=== PATIENT | male | born 1950 | race Caucasian/White ===

== ENCOUNTER 2019-07-23 23:50 | Inpatient (IN) | payer OTHER ==
[~2019-07-23] VITALS: Ht 167.6 cm; Wt 128.8 kg
[2019-07-23 23:55] VITALS: BP_SYST 129
[2019-07-24] MEDS ORDERED: ONDANSETRON HCL 4 MG/2 ML VIAL IVP ONE (00:30)
[2019-07-24] MEDS ORDERED: fentaNYL CITRATE/PF 100 MCG/2 ML AMP IVP ONE ×2 (00:30→02:30)
[2019-07-24] MEDS ORDERED: ROSU10TA2 PO (00:44)
[2019-07-24] MEDS ORDERED: GABA-533 PO (00:44)
[2019-07-24] MEDS ORDERED: LEVO112T5 PO (00:44)
[2019-07-24 00:50] LABS: HEMATOCRIT 38.2 % (36-54); HEMOGLOBIN 13.3 g/dL (14.0-18.0); MEAN CORPUSCULAR HEMOGLOBIN 31 pg (27-31); MEAN CORPUSCULAR HGB CONC 35 % (32-36); MEAN CORPUSCULAR VOLUME 90 fL (79.0-98.0); PLATELET COUNT (AUTO) 90 K/uL (130-430); RED BLOOD CELL COUNT(AUTO) 4.27 MIL/uL (4.2-6.2); RED CELL DISTRIBUTION WIDTH 14.7 % (9.0-15.0); WHITE BLOOD COUNT (AUTO) 3.5 K/uL (4.8-10.8)
[2019-07-24 01:02] LABS: CALCIUM 8.2 mg/dL (8.4-11.0); CREATININE 0.89 mg/dL (0.55-1.30); POTASSIUM 4.1 mmol/L (3.5-5.1)
[2019-07-24 01:02] LABS: BILIRUBIN,URINE NEGATIVE (NEGATIVE); BLOOD, URINE 1+ (NEGATIVE); CLARITY/URINE CLEAR (CLEAR); COLOR,URINE YELLOW (YELLOW); GLUCOSE,URINE 3+ (NEGATIVE); KETONES,URINE 1+ (NEGATIVE); LEUKOCYTE ESTERASE ,URINE NEGATIVE (NEGATIVE); NITRITE, URINE NEGATIVE (NEGATIVE); PH,URINE 5.5 (5.0-8.0); PROTEIN URINE 1+ (NEGATIVE); UROBILINOGEN,URINE 0.2 (0.2-1.0)
[2019-07-24 01:09] LABS: BACTERIA,URINE FEW /HPF (None Seen)
[2019-07-24 01:22] LABS: ATYPICAL LYMPHOCYTES % 0 % (0-0); BAND % (MANUAL) 4 % (0-6); BASOPHILS % (MANUAL) 0 % (0-2); EOSINOPHILS % (MANUAL) 0 % (0-7); LYMPHOCYTES % (MANUAL) 13 % (20-46); METAMYELOCYTES % 0 % (0-0); MONOCYTES % (MANUAL) 5 % (0-11); MYELOCYTES % 2 % (0-0)
[2019-07-24] MEDS ORDERED: NS 500 ML IV ONE (02:00)
[2019-07-24] MEDS ORDERED: IOHEXOL 350 mgI/mL, 150 ML INFUS..BTL IV ONE (02:01)
[2019-07-24] MEDS ORDERED: NACL 0.9% 1,000 ML IV ONE (02:45)
[2019-07-24 03:31] VITALS: BP_SYST 128
[2019-07-24] MEDS: NACL 0.9% 1,000 ML IV SCH ×3 (05:08→23:00)
[2019-07-24 08:10] VITALS: BP_SYST 109
[2019-07-24] MEDS ORDERED: ACETAMINOPHEN 650 MG SUPP.RECT RC PRN (10:45)
[2019-07-24] MEDS ORDERED: traMADol HCL HCL 50 MG TABLET (ULTRAM) PO PRN (10:45)
[2019-07-24 11:34] VITALS: BP_SYST 106
[2019-07-24] MEDS ORDERED: DEXTROSE 50% JECT 50 ML DISP.SYRIN IVP PRN (12:00)
[2019-07-24] MEDS ORDERED: LORazepam 1 MG TABLET PO PRN (12:00)
[2019-07-24] MEDS ORDERED: THIAMINE HCL 100 MG TABLET PO ONE (12:00)
[2019-07-24] MEDS ORDERED: FAMOTIDINE 20 MG TABLET PO ONE (12:00)
[2019-07-24] MEDS ORDERED: LEVOTHYROXINE SODIUM 0.112 MG TABLET PO ONE (12:00)
[2019-07-24] MEDS ORDERED: TEMAZEPAM 15 MG CAPSULE PO PRN (12:00)
[2019-07-24] MEDS ORDERED: PIPERACILLIN/TAZO 3.375/DEX-IS 50 ML IV SCH (12:00)
[2019-07-24] MEDS: GABAPENTIN 400 MG CAPSULE PO SCH ×2 (15:28→21:00)
[2019-07-24 16:00] VITALS: BP_SYST 110
[2019-07-24] MEDS: INSULIN REGULAR, HUMAN 100 UNITS/ML, 10 ML VIAL (humuLIN R) SUBCUT PRN (17:55)
[2019-07-24] MEDS ORDERED: cefTRIAXone 1 GM in D5W 50 ML IV SCH (18:00)
[2019-07-24 20:00] VITALS: BP_SYST 114
[2019-07-24] MEDS: ATORVASTATIN 20 MG TABLET PO SCH (21:00)
[2019-07-24] MEDS: FAMOTIDINE 20 MG TABLET PO SCH (21:00)
[2019-07-24] MEDS ORDERED: ROSUVASTATIN CALCIUM 5 MG/TAB (CRESTOR) PO SCH (21:00)
[2019-07-25] VITALS: BP_SYST 112
[2019-07-25] MEDS: MORPHINE 2 MG/ML INJ. SYRINGE IVP PRN ×2 (06:07→21:13)
[2019-07-25] MEDS: LEVOTHYROXINE SODIUM 0.112 MG TABLET PO SCH (06:09)
[2019-07-25] MEDS: INSULIN REGULAR, HUMAN 100 UNITS/ML, 10 ML VIAL (humuLIN R) SUBCUT PRN ×3 (06:14→16:43)
[2019-07-25 06:39] LABS: ALBUMIN 2.5 g/dL (3.4-4.8); CALCIUM 7.7 mg/dL (8.4-11.0); CREATININE 0.83 mg/dL (0.55-1.30); POTASSIUM 3.8 mmol/L (3.5-5.1); THYROID STIMULATING HORMONE 7.23 uIu/mL (0.36-3.74); TOTAL BILIRUBIN 0.9 mg/dL (0.0-1.0)
[2019-07-25 08:00] VITALS: BP_SYST 124
[2019-07-25 08:03] LABS: HEMATOCRIT 35.4 % (36-54); HEMOGLOBIN 12.2 g/dL (14.0-18.0); MEAN CORPUSCULAR HEMOGLOBIN 31 pg (27-31); MEAN CORPUSCULAR HGB CONC 35 % (32-36); MEAN CORPUSCULAR VOLUME 90 fL (79.0-98.0); PLATELET COUNT (AUTO) 78 K/uL (130-430); RED BLOOD CELL COUNT(AUTO) 3.92 MIL/uL (4.2-6.2); RED CELL DISTRIBUTION WIDTH 14.8 % (9.0-15.0); WHITE BLOOD COUNT (AUTO) 2.6 K/uL (4.8-10.8)
[2019-07-25] MEDS: FAMOTIDINE 20 MG TABLET PO SCH ×2 (08:55→21:03)
[2019-07-25] MEDS: FOLIC ACID 1 MG TABLET PO SCH (08:55)
[2019-07-25] MEDS: GABAPENTIN 400 MG CAPSULE PO SCH ×3 (08:55→21:02)
[2019-07-25] MEDS: THIAMINE HCL 100 MG TABLET PO SCH (08:55)
[2019-07-25 10:18] LABS: BAND % (MANUAL) 16 % (0-6); EOSINOPHILS % (MANUAL) 0 % (0-7); LYMPHOCYTES % (MANUAL) 28 % (20-46); MONOCYTES % (MANUAL) 6 % (0-11)
[2019-07-25 10:19] LABS: BASOPHILS % (MANUAL) 0 % (0-2)
[2019-07-25] MEDS: NACL 0.9% 1,000 ML IV SCH ×2 (11:36→19:00)
[2019-07-25 12:00] VITALS: BP_SYST 125
[2019-07-25] MEDS ORDERED: DOXYCYCLINE HYCLATE 100 MG CAPSULE PO ONE (14:15)
[2019-07-25 16:00] VITALS: BP_SYST 135
[2019-07-25] MEDS ORDERED: DEXTROSE 50% JECT 50 ML DISP.SYRIN IVP PRN (18:15)
[2019-07-25] MEDS ORDERED: INSULIN GLARGINE 100 UNITS/ML 10 ML VIAL SUBCUT SCH (18:30)
[2019-07-25 19:30] VITALS: BP_SYST 113
[2019-07-25] MEDS: DOXYCYCLINE HYCLATE 100 MG CAPSULE PO SCH (21:03)
[2019-07-25] MEDS: ATORVASTATIN 20 MG TABLET PO SCH (21:03)
[2019-07-25] MEDS: INSULIN LISPRO SLIDING SCALE 100 UNITS/ML VIAL (humaLOG) SUBCUT PRN (21:20)
[2019-07-26] VITALS: BP_SYST 112
[2019-07-26] MEDS: NACL 0.9% 1,000 ML IV SCH ×2 (05:00→15:00)
[2019-07-26] MEDS: LEVOTHYROXINE SODIUM 0.112 MG TABLET PO SCH (06:11)
[2019-07-26] MEDS: INSULIN LISPRO SLIDING SCALE 100 UNITS/ML VIAL (humaLOG) SUBCUT PRN ×3 (06:15→17:51)
[2019-07-26 07:22] LABS: BASOPHILS % (AUTO) 0.5 % (0.0-2.0); HEMATOCRIT 34.8 % (36-54); HEMOGLOBIN 12.1 g/dL (14.0-18.0); LYMPHOCYTES # (AUTO) 1.2 K/uL (1.0-5.5); LYMPHOCYTES % (AUTO) 41.6 % (20.5-51.5); MEAN CORPUSCULAR HEMOGLOBIN 31 pg (27-31); MEAN CORPUSCULAR HGB CONC 35 % (32-36); MEAN CORPUSCULAR VOLUME 89 fL (79.0-98.0); MONOCYTES # (AUTO) 0.4 K/uL (0.0-1.0); MONOCYTES % (AUTO) 13.1 % (1.7-9.3); NEUTROPHILS # (AUTO) 1.3 K/uL (1.8-7.7); NEUTROPHILS % (AUTO) 43.8 % (40.0-70.0); PLATELET COUNT (AUTO) 79 K/uL (130-430); RED BLOOD CELL COUNT(AUTO) 3.92 MIL/uL (4.2-6.2); RED CELL DISTRIBUTION WIDTH 14.7 % (9.0-15.0); WHITE BLOOD COUNT (AUTO) 2.9 K/uL (4.8-10.8)
[2019-07-26 07:48] LABS: ALBUMIN 2.7 g/dL (3.4-4.8); CALCIUM 8.1 mg/dL (8.4-11.0); CREATININE 0.81 mg/dL (0.55-1.30); POTASSIUM 3.3 mmol/L (3.5-5.1)
[2019-07-26 08:00] VITALS: BP_SYST 118
[2019-07-26] MEDS ORDERED: metFORMIN HCL 500 MG TABLET PO SCH (08:00)
[2019-07-26] MEDS: FOLIC ACID 1 MG TABLET PO SCH (09:25)
[2019-07-26] MEDS: DOXYCYCLINE HYCLATE 100 MG CAPSULE PO SCH (09:26)
[2019-07-26] MEDS: GABAPENTIN 400 MG CAPSULE PO SCH ×2 (09:26→15:37)
[2019-07-26] MEDS: THIAMINE HCL 100 MG TABLET PO SCH (09:26)
[2019-07-26] MEDS: FAMOTIDINE 20 MG TABLET PO SCH (09:26)
[2019-07-26 12:00] VITALS: BP_SYST 112
[2019-07-26] MEDS ORDERED: FOLI-43 PO (13:47)
[2019-07-26] MEDS ORDERED: FAMO20TA8 PO (13:47)
[2019-07-26] MEDS ORDERED: Thiamine Hcl PO (13:47)
[2019-07-26] MEDS ORDERED: METF1000 PO (13:47)
[2019-07-26] MEDS ORDERED: DOXY100C2 PO (13:52)
[2019-07-26 14:59] VITALS: BP_SYST 120
== END 2019-07-26 18:45 | disposition home health service (06) | DRG 871 ==
LOC: SED 23:50 → STU 07-24 02:52
PROVIDERS: ADMIT Internal Medicine; ATTEND Internal Medicine
DX: A41.9 Sepsis, unspecified organism (principal); E11.10 Type 2 diabetes mellitus with ketoacidosis without coma; N39.0 Urinary tract infection, site not specified; E44.1 Mild protein-calorie malnutrition; D61.818 Other pancytopenia; Z68.45 Body mass index [BMI] 70 or greater, adult; E66.01 Morbid (severe) obesity due to excess calories; E78.5 Hyperlipidemia, unspecified; R07.89 Other chest pain; R16.1 Splenomegaly, not elsewhere classified; E11.42 Type 2 diabetes mellitus with diabetic polyneuropathy; D69.6 Thrombocytopenia, unspecified; E03.9 Hypothyroidism, unspecified; Z87.891 Personal history of nicotine dependence; Z91.14 Patient's other noncompliance with medication regimen; Z90.49 Acquired absence of other specified parts of digestive tract; Z85.038 Personal history of other malignant neoplasm of large intestine; Z79.899 Other long term (current) drug therapy; Z79.4 Long term (current) use of insulin
CPT/HCPCS: 36415; 71045; 71275; 80048; 80053; 80061; 81000-TC; 82550-TC; 82962; 82977-TC; 83036; 83605; 83880; 84439; 84443-TC; 84484; 85007; 85025; 85027; 85379; 86710; 87040-TC; 93005; 93306; 96365; 96375; 96376; 99285; G0378; J0696; J1815; J1956; J2270; J2405; J2543; J3010; J7030; J7060; Q9967

== ENCOUNTER 2021-08-25 15:45 | Emergency (ER) | payer OTHER ==
[~2021-08-25] VITALS: Ht 177.8 cm; Wt 158.8 kg
[2021-08-25 15:45] VITALS: BP_SYST 141
[~2021-08-25 15:45] MED LIST: DOXY100C5 PO; FAMO20TA8 PO; FOLI-43 PO; GABA-533 PO; LEVO112T5 PO; METF1000 PO; ROSU10TA2 PO; Thiamine Hcl PO
--- NOTE | 2021-08-25 15:50 | NUR ---
BROUGHT BACK TO BED #3 AND TRIAGED, REPORT GIVEN TO RACHANA
--- NOTE | 2021-08-25 16:00 | NUR ---
PT CAME IN FROM HOME WITH C/O LEFT ARM PAIN, STATES HE BROKE HIS HUMERUS 5 DAYS AGO AND HAS BEEN UNABLE TO MANAGE PAIN AT HOME. PT IS ALSO CONCERNED ABOUT THE REDNESS AND BRUISING FROM FRACTURE. PT IS AMBULATORY, AAOX4, V/S STABLE.
--- NOTE | 2021-08-25 16:17 | NUR ---
ER DR. AGGARWAL AT THE BEDSIDE EXAMINNG PT
[2021-08-25] MEDS ORDERED: MORP30TA59 PO ×2 (16:42→16:44)
[2021-08-25] MEDS ORDERED: MORPHINE 4 MG INJ. 4 MG/ML VIAL IM ONE (16:45)
[2021-08-25] MEDS ORDERED: MORPHINE 4 MG INJ. 4 MG/ML VIAL ONE (17:41)
[2021-08-25 17:47] VITALS: BP_SYST 141
[2021-08-25] MEDS: MORPHINE 4 MG INJ. 4 MG/ML VIAL IM ONE (17:57)
--- NOTE | 2021-08-25 17:58 | NUR ---
Patient given written and verbal discharge instructions and verbalizes understanding. ER MD discussed with patient the results and treatment provided. Patient in stable condition. ID arm band removed. Rx of MS CONTIN given. Patient educated on pain management and to follow up with PMD. Pain Scale 5/10. Opportunity for questions provided and answered. Medication side effect fact sheet provided.
== END 2021-08-25 17:58 | disposition home or self-care (01) ==
LOC: SED 15:45
DX: S42.202A Unspecified fracture of upper end of left humerus, initial encounter for closed fracture (principal); E11.9 Type 2 diabetes mellitus without complications; E03.9 Hypothyroidism, unspecified; Z79.899 Other long term (current) drug therapy; W18.39XA Other fall on same level, initial encounter; Y93.89 Activity, other specified; Y92.89 Other specified places as the place of occurrence of the external cause; Y99.8 Other external cause status
CPT/HCPCS: 96372; 99283; J2270